=== PATIENT | male | born 1975 | race Caucasian/White ===

== ENCOUNTER 2018-09-10 23:29 | Emergency (ER) | payer MEDICAID ==
[~2018-09-10] VITALS: Ht 180.3 cm; Wt 90.7 kg
[~2018-09-10 23:29] MED LIST: ADVAIR 250-501 EACH INH; NEURONTIN300 MG ORAL; NORCO 5-325 TA1 EACH ORAL; PROAIR HFA8.5 GM INH; SPIRIVA18 MCG INH
[2018-09-10 23:34] VITALS: BP 111/67
[2018-09-10] MEDS ORDERED: PROZAC10 MG ORAL (23:34)
--- NOTE | 2018-09-10 23:50 | Emergency Room Report ---
History of Present Illness General Chief Complaint: General Complaint Source: Patient, EMS Present Illness HPI Is a 42-year-old male who is an alcoholic. He presents with chief complaint of rectal bleeding. He has copious amount of bright red blood per rectum. Onset for 1 day. He said he also noticed that he is jaundiced for the last 4 days. Complaint of generalize weakness. No vomiting. Denies any fever chills but denies any pain. Because of rectal bleeding, he called 911. Allergies: Coded Allergies: No Known Allergies (Unverified , 08/20/12) Patient History Past Medical History: see triage record, old chart reviewed Past Surgical History: other Pertinent Family History: none Social History: Reports: alcohol use Immunizations: other Reviewed Nursing Documentation: PMH: Agreed; PSxH: Agreed Nursing Documentation-PMH Hx Hypertension: Yes Hx COPD: Yes Hx Gastrointestinal Problems: Yes - Liver Disease History Of Psychiatric Problem: Yes Review of Systems Eye: Denies: eye pain, blurred vision ENT: Denies: ear pain, nose congestion, throat swelling Respiratory: Denies: cough, shortness of breath Cardiovascular: Denies: chest pain, palpitations Gastrointestinal: Reports: diarrhea; Denies: abdominal pain, nausea, vomiting Musculoskeletal: Denies: back pain, joint pain Skin: Denies: rash Neurological: Denies: headache, numbness Endocrine: Denies: increased thirst, increased urine Hematologic/Lymphatic: Denies: easy bruising All Other Systems: negative except mentioned in HPI Physical Exam Vital Signs Date Time Temp Pulse Resp B/P (MAP) Pulse Ox O2 Delivery O2 Flow Rate FiO2 09/10/18 23:28 97.7 77 16 90/50 96 Room Air vitals with hypotension Sp02 EP Interpretation: reviewed, normal General Appearance: alert, mild distress, cachetic Head: normocephalic, atraumatic Eyes: bilateral eye PERRL, bilateral eye EOMI, bilateral eye scleral icterus ENT: hearing grossly normal, normal pharynx Neck: full range of motion, supple, no meningismus Respiratory: chest non-tender, lungs clear, normal breath sounds Cardiovascular #1: regular rate, rhythm, no murmur Gastrointestinal: normal bowel sounds, non tender, no mass, no organomegaly, no bruit, non-distended, other - Ascites Musculoskeletal: back normal, gait/station normal, normal range of motion Neurologic: alert, oriented x3 Psychiatric: mood/affect normal Skin: warm/dry, jaundice - Diffuse, severe Medical Decision Making Diagnostic Impression: Primary Impression: LGI bleed Additional Impressions: Hepatorenal syndrome End stage liver disease UTI (urinary tract infection) Qualified Codes: N30.00 - Acute cystitis without hematuria Acute hepatic encephalopathy Anemia Qualified Codes: D64.9 - Anemia, unspecified Pancreatitis, alcoholic, acute Qualified Codes: K85.20 - Alcohol induced acute pancreatitis without necrosis or infection ER Course This patient presents with rectal bleeding. He is extremely jaundiced and has end-stage liver disease with hepatorenal syndrome. Prognosis for this is extremely poor. Antibiotics given for UTI. First hemoglobin is stable. Blood pressure stable. Patient is stable for transfer based on his insurance. Lab Results Impression Labs with liver disease. EKG Diagnostic Results Rate: normal Rhythm: NSR ST Segments: no acute changes Rhythm Strip Diag. Results Rhythm Strip Time: 00:20 EP Interpretation: yes Rate: 96 Rhythm: NSR, no PVC's, no ectopy Chest X-Ray Diagnostic Results Chest X-Ray Diagnostic Results : Chest X-Ray Ordered: Yes # of Views/Limited/Complete: 1 View Indication: Shortness of Breath EP Interpretation: Yes Interpretation: no consolidation, no effusion, no pneumothorax, no acute cardiopulmonary disease Impression: No acute disease Electronically Signed by: Mando Bobby MD Last Vital Signs Date Time Temp Pulse Resp B/P (MAP) Pulse Ox O2 Delivery O2 Flow Rate FiO2 09/10/18 23:28 97.7 77 16 90/50 96 Room Air Status: improved Disposition: XFER SHT-TRM HOSP Condition: Stable Referrals: [facility],REFERRING (PCP) Mando Bobby MD Sep 10, 2018 23:50
[2018-09-11 00:29] LABS: HEMATOCRIT 29.3 % (42.0-52.0); HEMOGLOBIN 10.4 G/DL (14.2-18.0); MEAN CORPUSCULAR VOLUME 104 FL (80-99); PLATELET COUNT 77 K/UL (150-450); RED BLOOD COUNT 2.81 M/UL (4.70-6.10); RED CELL DISTRIBUTION WIDTH 15.4 % (11.6-14.8)
[2018-09-11] MEDS: Pantoprazole Inj IVP ONE (00:29)
[2018-09-11 00:41] LABS: ANION GAP 18 mmol/L (5-15); BLOOD UREA NITROGEN 41 mg/dL (7-18); CALCIUM 7.3 MG/DL (8.5-10.1); CARBON DIOXIDE 21 MMOL/L (21-32); CHLORIDE 85 MMOL/L (98-107); CREATININE 6.9 MG/DL (0.55-1.30); SODIUM 124 MMOL/L (136-145)
[2018-09-11 00:43] LABS: AMMONIA 135 umol/L (11-32); INR 1.9 (0.9-1.1)
[2018-09-11 00:53] LABS: BILIRUBIN, URINE 3+ (NEGATIVE); GLUCOSE, URINE (UA) 1+ (NEGATIVE); KETONES,URINE NEGATIVE (NEGATIVE); LEUKOCYTE ESTERASE ,URINE 1+ (NEGATIVE); NITRITE,URINE POSITIVE (NEGATIVE); PH,URINE 6.5 (4.5-8.0); PROTEIN,URINE 3+ (NEGATIVE); UROBILINOGEN,URINE 4 MG/DL (0.0-1.0)
[2018-09-11 00:57] LABS: ALANINE AMINOTRANSFERASE 131 U/L (12-78); ALBUMIN 1.7 G/DL (3.4-5.0); ALKALINE PHOSPHATASE 308 U/L (46-116); ASPARTATE AMINO TRANSFERASE 651 U/L (15-37); BILIRUBIN,TOTAL 35.8 MG/DL (0.2-1.0)
[2018-09-11 01:10] LABS: APPEARANCE,URINE TURBID; COLOR,URINE GREEN
[2018-09-11] MEDS: cefTRIAXone 1 GM in NS 55 ML IVPB ONE (01:30)
[2018-09-11 02:05] VITALS: BP 112/63
--- NOTE | 2018-09-12 15:48 | Diagnostic Imaging Report ---
Indication: Dyspnea Comparison: 05/18/2014 A single view chest radiograph was obtained. Findings: Cardiomediastinal appearance is within normal limits for age. The lungs are clear. Pulmonary vascularity is appropriate. The diaphragmatic contour is smooth and costophrenic angles are sharp. No pleural effusions are identified. The bones are unremarkable. Impression: No acute findings
== END 2018-09-11 02:05 | disposition short-term general hospital (02) ==
LOC: EDBD 23:29 → EMR 23:45 → EDBEDREQ 23:53 → EMR 09-11 02:05
DX: K92.2 Gastrointestinal hemorrhage, unspecified (principal); K76.7 Hepatorenal syndrome; K72.90 Hepatic failure, unspecified without coma; N30.00 Acute cystitis without hematuria; D64.9 Anemia, unspecified; K85.20 Alcohol induced acute pancreatitis without necrosis or infection; I10 Essential (primary) hypertension; J44.9 Chronic obstructive pulmonary disease, unspecified
CPT/HCPCS: 36415; 71045; 80053; 81003; 82140; 82248; 83690; 85025; 85610; 85730; 86850; 86900; 86901; 87086; 93005; 96361; 96374; 99285; C9113